=== PATIENT | male | born 1980 ===

== ENCOUNTER 2017-02-09 12:35 | Emergency (ER) | payer SELFPAY ==
--- NOTE | 2017-02-09 13:53 | C.PDOC ---
History Of Present Illness <Axel Jackson - Last Filed: 02/10/17 06:27> <Marlo Zaidi - Last Filed: 02/11/17 13:04> 37 y/o male brought to ED by EMS for evaluation of "back pain". Upon arrival to ED, patient denies any pain, is not clear with answers, and is not stating any complaints. Pt states that he is in [facility], answers "i'm good" to all questions, denies any drug use. pt denies any trauma. seen ambulating around ER in no distress. pt later reports he is homeless No fever, reyes, abdominal pain, or other complaints. limited history provided. (Marlo Zaidi) <Axel Jackson - Last Filed: 02/10/17 06:27> History Per: Patient History/Exam Limitations: no limitations <Marlo Zaidi - Last Filed: 02/11/17 13:04> Time Seen by Provider: 02/09/17 13:40 Chief Complaint (Nursing): Medical Clearance Past Medical History Reviewed: Historical Data, Nursing Documentation, Vital Signs Family History: States: Unknown Family Hx - Social History Hx Alcohol Use: (unknown) Hx Substance Use: (unknown) <Marlo Zaidi - Last Filed: 02/11/17 13:04> Vital Signs: Last Vital Signs Temp 97.8 F 02/10/17 06:29 Pulse 86 02/10/17 06:29 Resp 20 02/10/17 06:29 BP 116/77 02/10/17 06:29 Pulse Ox 98 02/10/17 06:29 Review Of Systems Review Of Systems: ROS cannot be obtained secondary to pt's inabilty to answer questions. <Marlo Zaidi - Last Filed: 02/11/17 13:04> Physical Exam <Axel Jackson - Last Filed: 02/10/17 06:27> - Physical Exam Appears: Non-toxic, No Acute Distress, Unkempt, Other (malodorous, disheveled) Skin: Normal Color, Warm, Dry Head: Atraumatic, Normacephalic Eye(s): bilateral: Normal Inspection Oral Mucosa: Moist Neck: Normal ROM, Supple Chest: Symmetrical Cardiovascular: Rhythm Regular, No Murmur Respiratory: Normal Breath Sounds, No Rales, No Rhonchi, No Wheezing Gastrointestinal/Abdominal: Soft, No Tenderness Back: Normal Inspection, No Vertebral Tenderness, No Paraspinal Tenderness Extremity: Normal ROM Neurological/Psych: No Oriented x3, Normal Cranial Nerves, No Cerebellar Signs, Normal Motor, Normal Sensation, Other (normal gait) <DejuanMarlo - Last Filed: 02/11/17 13:04> - Physical Exam Additional Physical Exam Comments: no lumbar, thorasic, cervical spinal ttp or stepoffs (Marlo Zaidi) ED Course And Treatment - Laboratory Results Result Diagrams: 02/09/17 14:10 02/09/17 14:10 Pulse Ox Interpretation: Normal Progress Note: pt was cleared for [place] [facility] [place] g[place] Reevaluation Time: 06:28 <Axel Jackson - Last Filed: 02/10/17 06:27> - Laboratory Results Result Diagrams: 02/09/17 14:10 02/09/17 14:10 ECG: Interpreted By Me, Viewed By Me ECG Rhythm: Sinus Rhythm ECG Interpretation: No Acute Changes Interpretation Of ECG: No acute ST/T wave changes. Rate From EC (bpm) O2 Sat by Pulse Oximetry: 99 (RA) Pulse Ox Interpretation: Normal - Other Rad CXR X-Ray: Viewed By Me, Read By Radiologist Interpretation: Accession No. : [id number]. Patient Name / ID : LUCIA AYALA / [id number]. Exam Date : 02/09/2017 14:07:17 ( Approved ). Study Comment : Sex / Age : M / 37Y. Creator : Terence Fragoso MD. Dictator : Terence Fragoso MD. [employer] [place] : Pharmacy Analyst : Terence Fragoso MD. Approver2 : Report Date : 02/09/2017 17:19:12. My Comment : . PROCEDURE: CHEST RADIOGRAPH, 1 VIEW. HISTORY: Detox/Psy. COMPARISON: None available. FINDINGS: LUNGS: No infiltrates bilaterally. PLEURA: No pneumothorax or pleural fluid seen. CARDIOVASCULAR: Normal. OSSEOUS STRUCTURES: No significant abnormalities. VISUALIZED UPPER ABDOMEN: Normal. OTHER FINDINGS: None. IMPRESSION: No active disease. - CT Scan/US Head CT Other Rad Studies (CT/US): Read By Radiologist, Radiology Report Reviewed CT/US Interpretation: Accession No. : [id number]. Patient Name / ID : LUCIA AYALA / [id number]. Exam Date : 02/09/2017 15:50:33 ( Approved ). Study Comment : Sex / Age : M / 37Y. Creator : Luz Petersen. Dictator : Linden Rebolledo MD. [employer] [place] : Pharmacy Analyst : Linden Rebolledo MD. Approver2 : Report Date : 02/09/2017 15:53:55. My Comment : . PROCEDURE: CT HEAD WITHOUT CONTRAST. HISTORY: ams. COMPARISON: None available. TECHNIQUE: Axial computed tomography images were obtained through the head/ brain without intravenous contrast. Radiation dose: Total exam DLP = 1099.38 mGy-cm. This CT exam was performed using one or more of the following dose reduction techniques: Automated exposure control, adjustment of the mA and/or kV according to patient size, and/or use of iterative reconstruction technique. FINDINGS: HEMORRHAGE: No intracranial hemorrhage. BRAIN: No intracranial mass. Please note that evaluation of the inferior cerebellum anterior temporal lobes is somewhat limited due to patient motion artifact. No evidence of acute infarct. VENTRICLES: Unremarkable. No hydrocephalus. CALVARIUM: Unremarkable. PARANASAL SINUSES: Unremarkable as visualized. No significant inflammatory changes. MASTOID AIR CELLS: Unremarkable as visualized. No inflammatory changes. OTHER FINDINGS: None. IMPRESSION: Normal CT of the Head. Limited examination as above. <Marlo Zaidi - Last Filed: 02/11/17 13:04> Medical Decision Making <Axel Jackson - Last Filed: 02/10/17 06:27> <Marlo Zaidi - Last Filed: 02/11/17 13:04> Medical Decision Making: will clear medically - Blood work, UA, EKG, CXR ordered and reviewed. Pt was given Permethrin for suspected scabies Pt is medically cleared for psych evaluation and admission. On re-eval, pt is eating, no acute distress. [place] [facility] 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 (Marlo Zaidi) Disposition Counseled Patient/Family Regarding: Studies Performed, Diagnosis, Need For Followup - Disposition Disposition Time: 01:00 <Axel Jackson - Last Filed: 02/10/17 06:27> <Marlo Zaidi - Last Filed: 02/11/17 13:04> - Disposition Referrals: [facility] [Outside] [facility] [Outside] Disposition: HOME/ ROUTINE Condition: FAIR Instructions: Anxiety (ED) Forms: [facility] ([place]) - Clinical Impression Clinical Impression: Medical assessment <Axel Jackson - Last Filed: 02/10/17 06:27> - Scribe Statement The provider has reviewed the documentation as recorded by the Scribe <Marlo Zaidi - Last Filed: 02/11/17 13:04> - Scribe Statement Janet Inman All medical record entries made by the Scribe were at my direction and personally dictated by me. I have reviewed the chart and agree that the record accurately reflects my personal performance of the history, physical exam, medical decision making, and the department course for this patient. I have also personally directed, reviewed, and agree with the discharge instructions and disposition. (Marlo Zaidi)
[2017-02-09 14:16] LABS: BASO % 0.5 % (0.0-2.0); EOS # 0.1 K/uL (0.0-0.7); EOS % 2.2 % (0.0-4.0); HEMATOCRIT 46.5 % (35.0-51.0); LYMPH # 1.9 K/uL (1.0-4.3); LYMPH % 34.1 % (20.0-40.0); MEAN CELL VOLUME 90.2 fL (80.0-94.0); MEAN CORPUSCULAR HEMOGLOBIN 30.9 pg (27.0-31.0); MEAN CORPUSCULAR HGB CONC 34.3 g/dL (33.0-37.0); MEAN PLATELET VOLUME 9.5 fL (7.2-11.7); MONO # 0.6 K/uL (0.0-0.8); MONO % 10.4 % (0.0-10.0); RED CELL DISTRIBUTION WIDTH 13.9 % (11.5-14.5); WHITE BLOOD COUNT 5.5 K/uL (4.8-10.8)
[2017-02-09] MEDS ORDERED: Permethrin 5% Cream(60 gm) TOP STA ×2 (14:21→14:22)
[2017-02-09 14:34] LABS: RBC URINE < 1 /hpf (0-3); URINE BILIRUBIN NEGATIVE (NEGATIVE); URINE BLOOD NEGATIVE (NEGATIVE); URINE COLOR Yellow (YELLOW); URINE GLUCOSE (UA) NORMAL (Normal); URINE KETONE NEGATIVE (NEGATIVE); URINE LEUKOCYTE ESTERASE NEG Leu/uL (Negative); URINE PROTEIN NEGATIVE (NEGATIVE); URINE UROBILINOGEN NORMAL mg/dL (0.2-1.0); WBC URINE < 1 /hpf (0-5)
[2017-02-09 14:52] LABS: ALB/GLOB RATIO 1.7 (1.0-2.1); ALCOHOL SERUM < 10 mg/dl (0-10); ALKALINE PHOSPHATASE 48 U/L (38-126); ALT/SGPT 53 U/L (21-72); AST/SGOT 31 U/L (17-59); BILIRUBIN,TOTAL 0.8 mg/dL (0.2-1.3); BLOOD UREA NITROGEN 17 mg/dL (9-20); CALCIUM 8.7 mg/dl (8.6-10.4); CARBON DIOXIDE 26 mmol/L (22-30); CHLORIDE 99 mmol/L (98-107); GFR AFRICAN-AMERICAN > 60; GLUCOSE,RANDOM 85 mg/dL (75-110); POTASSIUM 3.4 mmol/L (3.6-5.2); SODIUM 136 mmol/L (132-148); TOTAL PROTEIN 7.1 g/dL (6.3-8.3)
--- NOTE | 2017-02-09 16:04 | CT ---
PROCEDURE: CT HEAD WITHOUT CONTRAST. HISTORY: ams COMPARISON: None available. TECHNIQUE: Axial computed tomography images were obtained through the head/brain without intravenous contrast. Radiation dose: Total exam DLP = 1099.38 mGy-cm. This CT exam was performed using one or more of the following dose reduction techniques: Automated exposure control, adjustment of the mA and/or kV according to patient size, and/or use of iterative reconstruction technique. FINDINGS: HEMORRHAGE: No intracranial hemorrhage. BRAIN: No intracranial mass. Please note that evaluation of the inferior cerebellum anterior temporal lobes is somewhat limited due to patient motion artifact. No evidence of acute infarct. VENTRICLES: Unremarkable. No hydrocephalus. CALVARIUM: Unremarkable. PARANASAL SINUSES: Unremarkable as visualized. No significant inflammatory changes. MASTOID AIR CELLS: Unremarkable as visualized. No inflammatory changes. OTHER FINDINGS: None. IMPRESSION: Normal CT of the Head. Limited examination as above.
--- NOTE | 2017-02-09 17:20 | RAD ---
PROCEDURE: CHEST RADIOGRAPH, 1 VIEW HISTORY: Detox/Psy COMPARISON: None available. FINDINGS: LUNGS: No infiltrates bilaterally. PLEURA: No pneumothorax or pleural fluid seen. CARDIOVASCULAR: Normal. OSSEOUS STRUCTURES: No significant abnormalities. VISUALIZED UPPER ABDOMEN: Normal. OTHER FINDINGS: None. IMPRESSION: No active disease.
[2017-02-09] MEDS ORDERED: Potassium Chloride 10 mEq ER Tab PO STA (20:12)
[2017-02-09] MEDS ORDERED: Potassium Chloride 10 mEq ER Tab PO ONE (20:17)
[2017-02-10 06:30] VITALS: BP 116/77; PULSE 86; RESP 20; TEMP 97.8
[2017-02-11 13:05] VITALS: O2SAT 99
--- NOTE | 2017-02-12 12:08 | CARD ---
APPROVED REPORT EKG Measurement Heart [id number] VT [id number] <Conclusion> Normal sinus rhythm Normal ECG
== END 2017-02-10 06:48 | disposition home or self-care (01) ==
LOC: C.ER 12:35
DX: Z00.00 Encounter for general adult medical examination without abnormal findings (principal); Z59.0 Homelessness
CPT/HCPCS: 70450; 71010; 80053; 81001; 82948; 85025; 99285; G0480